=== PATIENT | female | born 1950 | race Caucasian/White ===

== ENCOUNTER 2017-03-11 15:50 | Emergency (ER) | payer OTHER ==
[~2017-03-11] VITALS: Ht 160 cm; Wt 60.2 kg
[2017-03-11 16:02] VITALS: TEMP 36.5; Ht 160 cm; Wt 60.2 kg
[2017-03-11] MEDS ORDERED: BACITRACIN OINT 15 GM TUBE EXT STA (16:13)
[2017-03-11] MEDS ORDERED: OXYCODONE/ACETAMINOPHEN 5-325 TAB PO STA (16:13)
[2017-03-11] MEDS ORDERED: IBUPROFEN 600 MG TAB PO STA (16:13)
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
[2017-03-11] MEDS ORDERED: SENN1TAB77 PO (16:44)
[2017-03-11] MEDS ORDERED: OXYC-57 PO (16:44)
[2017-03-11] MEDS ORDERED: DOCU-94 PO (16:44)
[2017-03-11 17:02] VITALS: BP 154/77; PULSE 69; O2SAT 97
== END 2017-03-11 17:03 | disposition home or self-care (01) ==
LOC: EDBD 15:50 → C.EDC 15:51
DX: T25.112A Burn of first degree of left ankle, initial encounter (principal); T22.112A Burn of first degree of left forearm, initial encounter; W40.8XXA Explosion of other specified explosive materials, initial encounter; Y92.010 Kitchen of single-family (private) house as the place of occurrence of the external cause; Z79.899 Other long term (current) drug therapy